=== PATIENT | female | born 1940 | race Caucasian/White ===

== ENCOUNTER → 2024-07-27 | Outpatient (CLI) | payer MEDICARE, OTHER | LOC: LAB SHORT 17:37 → LAB 17:37 | DX: N39.0 Urinary tract infection, site not specified (principal) | CPT/HCPCS: 87077; 87086; 87186 ==

== ENCOUNTER 2024-11-17 06:25 | Day surgery (SDC) | payer MEDICARE, OTHER ==
[2024-11-17] VITALS (8 sets, daily range): BP systolic 127–156; BP diastolic 59–68
[~2024-11-17] VITALS: Ht 162.6 cm; Wt 78.8 kg
[~2024-11-17 06:25] MED LIST: ALLO300 PO; Acetaminophen650 M1 PO; Aspirin325 MG PO; Benicar Hct 401 EACH PO; Carvedilol12.5 MG PO; CeFAZolin Sodium 2,000 MG in NS 100 ML IV SCH; FINACEA50 GM TOP; FLONASE ALLERG9.9 M2 INH; HYDHCL25 PO; Lactated Ringer's 1,000 ML IV SCH; METF500 PO
[2024-11-17] MEDS ORDERED: CeFAZolin Sodium 2,000 MG VIAL ONE (06:37)
[2024-11-17] MEDS ORDERED: Lidocaine HCl 1% 30 ML SDV ONE (07:08)
[2024-11-17] MEDS ORDERED: FARXIGA10 MG PO (07:19)
[2024-11-17] MEDS ORDERED: Midazolam HCl 1MG / ML 2ML Vial IV ONE (07:45)
[2024-11-17] MEDS ORDERED: Midazolam HCl 1MG / ML 2ML Vial ONE (07:48)
--- NOTE | 2024-11-17 07:58 | NUR ---
History, Chart, Medications and Allergies reviewed before start of procedure.Patient confirms NPO status and agrees with scheduled surgery. Pre-Op teaching done. Pt verbalizes understanding.
[2024-11-17] MEDS ORDERED: propofoL 20 ML IV ONE (08:14)
[2024-11-17] MEDS ORDERED: Ondansetron HCl 2 MG / ML 2ML Vial ONE (08:15)
[2024-11-17] MEDS ORDERED: FentaNYL Citrate 50 MCG/ML 2 ML Injection ONE (08:15)
[2024-11-17] MEDS ORDERED: Dexamethasone Sod Phos 10 MG/ML 1ML VIAL ONE (08:15)
[2024-11-17] MEDS ORDERED: ePHEDrine Sulfate 50 MG/ML 1ML Injection ONE ×2 (08:28→09:55)
[2024-11-17] MEDS ORDERED: HYDROcodone 5-APAP 325 TAB PO PRN (09:15)
[2024-11-17] MEDS ORDERED: Glycopyrrolate 0.2 MG/ML 5ML VIAL ONE (10:05)
--- NOTE | 2024-11-17 10:16 | NUR ---
Discharge instructions reviewed with patient. Patient verbalizes understanding. Copy given to patient to take home. Dressing c/d/i. Patient States Post-Procedure ride home has been arranged. Discharged via wheelchair to private car for ride home.
[2024-11-17] MEDS ORDERED: Ketorolac Tromethamine 30mg Vial ONE (10:42)
== END 2024-11-17 10:19 | disposition home or self-care (01) ==
LOC: ORSCMMR 06:25 → ORD 08:00 → ORSCMMR 08:00
DX: C18.9 Malignant neoplasm of colon, unspecified (principal); C78.7 Secondary malignant neoplasm of liver and intrahepatic bile duct; I25.10 Atherosclerotic heart disease of native coronary artery without angina pectoris; K21.9 Gastro-esophageal reflux disease without esophagitis; Z79.899 Other long term (current) drug therapy; I10 Essential (primary) hypertension; E78.00 Pure hypercholesterolemia, unspecified; Z79.82 Long term (current) use of aspirin
CPT/HCPCS: 77001; 82947; C1788; J0690; J1100; J1642; J1885; J2250; J2405; J2704; J3010; J7120

== ENCOUNTER → 2025-01-01 | Outpatient (CLI) | payer MEDICARE, OTHER ==
[~2025-01-01] MED LIST changes: -CeFAZolin Sodium 2,000 MG in NS 100 ML IV SCH; +FARXIGA10 MG PO; -Lactated Ringer's 1,000 ML IV SCH
[2025-01-01 11:12] LABS: BASOPHILS ABSOLUTE AUTO 0.07 K/mm3 (0.00-0.23); BASOPHILS PERCENT AUTO 1 % (0-2); EOSINOPHILS ABSOLUTE AUTO 0.46 K/mm3 (0.00-0.68); EOSINOPHILS PERCENT AUTO 5 % (0-6); Hematocrit 36.4 % (33.0-51.0); Hemoglobin 11.3 g/dL (11.5-16.0); IMMATURE GRAN ABSOLUTE AUTO 0.04 K/mm3 (0.00-0.10); IMMATURE GRAN PERCENT AUTO 0 % (0-1); LYMPHOCYTES ABSOLUTE AUTO 1.38 K/mm3 (0.84-5.20); LYMPHOCYTES PERCENT AUTO 14 % (21-46); MONOCYTES ABSOLUTE AUTO 1.05 K/mm3 (0.16-1.47); MONOCYTES PERCENT AUTO 11 % (4-13); Mean Corpuscular HGB 26.7 pg (26.0-34.0); Mean Corpuscular Volume 86 fL (80-100); Mean Platelet Volume 8.4 fL (9.1-12.4); NEUTROPHILS ABSOLUTE AUTO 6.57 K/mm3 (1.96-9.15); NEUTROPHILS PERCENT AUTO 69 % (41-73); Platelet Count 330 K/mm3 (150-400); RDW Standard Deviation 66.7 fL (35.1-46.3); Red Blood Cell Count 4.23 M/mm3 (3.80-5.20); White Blood Cell Count 9.57 K/mm3 (4.00-11.30)
[2025-01-01 11:22] LABS: Albumin, Blood 3.3 g/dL (3.4-5.0); Albumin/Globulin Ratio 0.7 (0.8-1.8); Bilirubin, Total 0.2 mg/dL (0.1-1.0); Bun/Creatinine Ratio 11.8 (12.0-20.0); Calcium, Blood 9.3 mg/dL (8.5-10.1); Creatinine, Blood 1.02 mg/dL (0.40-1.00); Globulin, Blood 4.6 g/dL (2.2-4.0); Potassium, Blood 3.7 mmol/L (3.5-5.5); Total Protein, Blood 7.9 g/dL (6.4-8.2)
== END | disposition home or self-care (01) ==
LOC: LAB 11:06 → LAB SHORT 11:06
PROVIDERS: Emergency Medicine
DX: D84.9 Immunodeficiency, unspecified (principal)
CPT/HCPCS: 80053; 85025

== ENCOUNTER 2025-05-31 09:27 | Emergency (ER) | payer MEDICARE, OTHER ==
[~2025-05-31] VITALS: Ht 162.6 cm; Wt 76.7 kg
[2025-05-31 10:53] LABS: Alanine Aminotransfer (ALT/SGP 37.0 U/L (12-78); Albumin, Blood 3.0 g/dL (3.4-5.0); Albumin/Globulin Ratio 0.7 (0.8-1.8); Anion Gap 8.0 mmol/L (3-11); Aspartate Aminotrans (AST/SGOT 36.0 U/L (12-37); Bilirubin, Total 0.3 mg/dL (0.1-1.0); Blood Urea Nitrogen 31.0 mg/dL (8-24); CO2, Blood 25.0 mmol/L (21-32); Calcium, Blood 8.5 mg/dL (8.5-10.1); Chloride, Blood 105.0 mmol/L (98-108); Creatinine, Blood 0.69 mg/dL (0.40-1.00); Globulin, Blood 4.3 g/dL (2.2-4.0); Glucose, Blood 87.0 mg/dL (70-99); Potassium, Blood 4.8 mmol/L (3.5-5.5); Sodium, Blood 133.0 mmol/L (136-145); Total Protein, Blood 7.3 g/dL (6.4-8.2)
[2025-05-31 12:00] VITALS: BP 146/72
[2025-05-31 12:48] LABS: BASOPHILS ABSOLUTE AUTO 0.07 K/mm3 (0.00-0.23); BASOPHILS PERCENT AUTO 1 % (0-2); EOSINOPHILS ABSOLUTE AUTO 0.15 K/mm3 (0.00-0.68); EOSINOPHILS PERCENT AUTO 2 % (0-6); Hematocrit 37.4 % (33.0-51.0); Hemoglobin 12.1 g/dL (11.5-16.0); IMMATURE GRAN ABSOLUTE AUTO 0.02 K/mm3 (0.00-0.10); IMMATURE GRAN PERCENT AUTO 0 % (0-1); LYMPHOCYTES ABSOLUTE AUTO 1.77 K/mm3 (0.84-5.20); LYMPHOCYTES PERCENT AUTO 21 % (21-46); MONOCYTES ABSOLUTE AUTO 0.59 K/mm3 (0.16-1.47); MONOCYTES PERCENT AUTO 7 % (4-13); Mean Corpuscular HGB Conc 32.4 g/dL (31.5-36.5); Mean Corpuscular Volume 100 fL (80-100); NEUTROPHILS ABSOLUTE AUTO 5.66 K/mm3 (1.96-9.15); NEUTROPHILS PERCENT AUTO 69 % (41-73); NRBC ABSOLUTE 0.00 K/mm3 (0.00-0.02); NRBC Auto 0.0 /100 WBC (0.0-0.2); Platelet Count 293 K/mm3 (150-400); RDW Coefficient Variation 15.8 % (11.7-14.2); RDW Standard Deviation 57.6 fL (35.1-46.3)
== END 2025-05-31 13:30 | disposition home or self-care (01) ==
LOC: ER 09:27
PROVIDERS: Emergency Medicine
DX: R07.89 Other chest pain (principal); I10 Essential (primary) hypertension; Z85.038 Personal history of other malignant neoplasm of large intestine; Z85.05 Personal history of malignant neoplasm of liver; Z85.118 Personal history of other malignant neoplasm of bronchus and lung; Z91.041 Radiographic dye allergy status; Z88.8 Allergy status to other drugs, medicaments and biological substances; Z79.82 Long term (current) use of aspirin; Z79.899 Other long term (current) drug therapy
CPT/HCPCS: 71046; 80053; 83690; 84484; 85025; 93005; 93010; 99285-25

== ENCOUNTER → 2025-10-24 | Outpatient (CLI) | payer MEDICARE, OTHER | LOC: LAB 13:05 → LAB SHORT 13:05 | DX: N39.0 Urinary tract infection, site not specified (principal) | CPT/HCPCS: 87086 ==

== ENCOUNTER → 2025-11-08 | Outpatient (CLI) | payer MEDICARE, OTHER ==
[2025-11-08 13:36] LABS: Source, Urine Clean Catch
== END ==
LOC: LAB 13:34 → LAB SHORT 13:34
PROVIDERS: Family Medicine
DX: N39.0 Urinary tract infection, site not specified (principal)
CPT/HCPCS: 81015; 87086